=== PATIENT | female | born 1995 | race Caucasian/White ===

== ENCOUNTER 2017-05-12 23:44 | Emergency (ER) | payer OTHER ==
[2017-05-12] MEDS ORDERED: ONDANSETRON 4 MG/2 ML VIAL ONE (23:48)
--- NOTE | 2017-05-12 23:50 | EDPHY ---
H & P HPI/ROS: Chief Complaint: Alcohol intoxication, vomiting HPI: 21-year-old female who was found at a green party intoxicated. Patient passed out after vomiting. Is unable to ambulate on their own. Patient brought in by EMS for further evaluation. No obvious signs of trauma per EMS. Remainder of history is unobtainable secondary to the patient's intoxication. ROS: Unobtainable secondary to the patient's intoxication PMH: Unknown Medications: Unknown Allergies: Unknown Social History: Positive for alcohol Family History: non-contributory Physical Exam: Gen: Somnolent, responds to painful stimuli, maintaining airway, smells of alcohol and emesis HEENT: Atraumatic Nose: no epistaxis or deformity Eyes: PERRLA, EOMI Mouth: Moist mucosa Neck: Supple, no step-offs or deformity Chest: Atraumatic, lungs clear to auscultation Heart: S1, S2 normal, no murmur Abd: Soft, non-tender, no guarding Back: Atraumatic Ext: no edema, atraumatic Skin: no rash Neuro: Sensation grossly intact, Strength 5/5 in bilateral upper and lower extremities Constitutional: Initial Vital Signs Temperature (C) 36.3 C 05/12/17 23:51 Heart Rate 83 05/12/17 23:51 Respiratory Rate 19 05/12/17 23:51 Blood Pressure 145/91 H 05/12/17 23:51 O2 Sat (%) 95 05/12/17 23:51 O2 Delivery Mode Room Air Medical Decision Making ED Course/Re-evaluation: 05/13/17 0020 parents at the bedside. Patient states she did hit her head sustain a concussion 2 days ago. She has not been having worsening headache or other symptoms. She has had multiple concussions in the past. Patient is exhibiting some shivering shaking movements. She is breathing through these maintaining her airway. He is to not appear to be seizures at this time. Pupils are reactive bilaterally. Parents are requesting no CT scanning at this time. Will continue to observe. 0145 patient is now answering questions. Is complaining of headache which she says is about the same as she had yesterday. No further nausea or vomiting. - Data Points Medications Given: Discontinued Medications Sodium Chloride (Ns) 1,000 mls @ 0 mls/hr IV ONCE ONE; Wide Open PRN Reason: Protocol Stop: 05/12/17 23:53 Last Admin: 05/12/17 23:53 Dose: 1,000 mls Ondansetron HCl (Zofran) 4 mg IVP EDNOW ONE Stop: 05/12/17 23:53 Last Admin: 05/12/17 23:53 Dose: 4 mg Departure - Departure Disposition: Home, Routine, Self-Care Clinical Impression: Alcoholic intoxication Condition: Good Instructions: Alcohol Intoxication (ED) Referrals: Patient,NotPresent [Unknown] - As per Instructions
[2017-05-12] MEDS ORDERED: ONDANSETRON 4 MG/2 ML VIAL IVP ONE (23:52)
[2017-05-12] MEDS ORDERED: NS 1,000 ML IV ONE (23:52)
[2017-05-13 01:07] VITALS: RESP 16
[2017-05-13 03:53] VITALS: BP 96/64; PULSE 84; TEMP 98.4; O2SAT 96
== END 2017-05-13 03:53 | disposition home or self-care (01) ==
DX: F10.129 Alcohol abuse with intoxication, unspecified (principal); E86.9 Volume depletion, unspecified
CPT/HCPCS: 96374; J2405